=== PATIENT | male | born 1945 | race Caucasian/White ===

== ENCOUNTER 2017-09-13 08:24 | Day surgery (SDC) ==
[2017-09-13] MEDS ORDERED: LIDOCAINE 1% 20 ML MDV ID STA (09:20)
[2017-09-13] MEDS ORDERED: DIPRIVAN 20 ML VIAL IVP ONE (10:41)
[2017-09-13] MEDS ORDERED: VERSED ONE (10:41)
[2017-09-13 15:04] VITALS: BP 126/68; TEMP 98.7
--- NOTE | 2017-09-14 12:53 | OP ---
INDICATIONS FOR PROCEDURE: 72-year-old gentleman presents for surveillance exam. He has a history of ulcerative proctitis diagnosed 10 years ago. MEDICATIONS: SEE ANESTHESIA NOTES. PROCEDURE: COLONOSCOPY, SURVEILLANCE BIOPSIES, SNARE POLYPECTOMY. REPORT: The risks, benefits, alternatives and limitations were discussed in detail with the patient. Informed consent was obtained. After adequate sedation was achieved, a digital rectal exam revealed good tone, no masses. The colonoscope was introduced into the rectum and advanced under direct visual guidance to the cecum. The cecum was identified by the appendiceal orifice and IC valve. I then slowly withdrew the scope in a circumferential manner examining the mucosa quite carefully. I looked on the proximal and distal side of folds and flexures as best as possible. I was able to retroflex the scope in the right colon and left colon to increase visualization. The colonic mucosa was unremarkable its entire length except for a 5 to 6 mm slightly raised polyp at the rectosigmoid junction. This appeared benign. It was removed by snare technique. No other abnormalities were noted including on retroflex view of the anal canal. I did obtain surveillance biopsies from four quadrants from the cecum, mid transverse colon, descending colon, sigmoid colon and throughout the rectum. The patient tolerated the procedure well with stable vital signs and pulse oximetry throughout. The withdrawal time was 9 minutes and 8 seconds. IMPRESSION: 1. SMALL POLYP REMOVED 2. OTHERWISE UNREMARKABLE COLONOSCOPY EXAM RECOMMENDATIONS: 1. High fiber diet 2. Office visit as needed and for his annual checkup 3. Await surveillance biopsies 4. Await colon polyp pathology 5. If everything is benign, I recommend repeat colonoscopy examination again in 5 years, sooner if there are signs or symptoms to indicate otherwise CC: DR. JT DEGROOT [address] [place] [id number]
== END 2017-09-13 11:55 | disposition home or self-care (01) ==
LOC: SURG 08:24
PROVIDERS: ATTEND Internal Medicine Gastroenterology
DX: Z09 Encounter for follow-up examination after completed treatment for conditions other than malignant neoplasm (principal); Z87.19 Personal history of other diseases of the digestive system; D12.7 Benign neoplasm of rectosigmoid junction; D12.0 Benign neoplasm of cecum; D12.4 Benign neoplasm of descending colon; D12.5 Benign neoplasm of sigmoid colon; D12.3 Benign neoplasm of transverse colon; K63.5 Polyp of colon